=== PATIENT | female | born 1980 | race African-American/Black ===

== ENCOUNTER 2019-07-08 23:41 | Emergency (ER) | payer OTHER ==
[2019-07-08 23:53] VITALS: BP 146/104; PULSE 85; TEMP 98.3; BMI 28.3
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
== END 2019-07-09 01:40 | disposition home or self-care (01) ==
LOC: FER 23:41
DX: R14.0 Abdominal distension (gaseous) (principal); I10 Essential (primary) hypertension
CPT/HCPCS: 81025; 99282-25